=== PATIENT | male | born 1985 | race Caucasian/White ===

== ENCOUNTER 2017-06-20 18:47 | Emergency (ER) | payer OTHER ==
[~2017-06-20] VITALS: Ht 167.6 cm; Wt 67.3 kg
[~2017-06-20 18:47] MED LIST: LORTAB 7.5/5001 TAB PO; MOTRIN 800800 MG/TAB PO; NORCO 325 MG-7.1 TAB PO; No Medications; ORPHENADRINE C100 MG PO
[2017-06-20 18:50] VITALS: BP 137/87; PULSE 84; TEMP 98.1
[2017-06-20 19:42] LABS: COLLECTION METHOD CLEAN CATCH
[2017-06-20 19:50] LABS: MUCOUS Present /lpf; PH 5 (5-8); SQUAMOUS EPITHELIAL None Seen /hpf; URINE APPEARANCE Clear; URINE BACTERIA None Seen /hpf; URINE BILIRUBIN Negative (NEGATIVE); URINE BLOOD Negative (NEGATIVE); URINE COLOR Yellow; URINE GLUCOSE Negative (NEGATIVE); URINE KETONE Negative (NEGATIVE); URINE LEUKOCYTE ESTERASE Negative (NEGATIVE); URINE PROTEIN(semi-quant) Negative (NEGATIVE); URINE RBC 0-2 /hpf; URINE UROBILINOGEN Negative (NEGATIVE); URINE WBC 0-2 /hpf
[2017-06-20] MEDS ORDERED: NAPROSYN500 MG PO (19:54)
[2017-06-20] MEDS ORDERED: FLEXERIL 1010 MG/TAB PO (19:54)
== END 2017-06-20 20:09 | disposition home or self-care (01) ==
LOC: COL.ER 18:47
PROVIDERS: Physician Assistant
DX: M54.31 Sciatica, right side (principal)
CPT/HCPCS: J1885

== ENCOUNTER → 2018-01-08 | Outpatient (CLI) | payer OTHER ==
[~2018-01-08] MED LIST changes: +FLEXERIL 1010 MG/TAB PO; +NAPROSYN500 MG PO
[2018-01-08 17:25] LABS: SYNOVIAL FLUID RBC 3000 /mm3 (0-0); SYNOVIAL FLUID WBC 15342 /mm3 (200-600)
[2018-01-08 17:27] LABS: SYNOVIAL FLUID APPEARANCE CLOUDY; SYNOVIAL FLUID COLOR YELLOW
== END ==
LOC: ZCOL.LAB 17:10
PROVIDERS: Orthopaedic Surgery
DX: M25.562 Pain in left knee (principal)

== ENCOUNTER 2018-07-27 11:33 | Emergency (ER) | payer BC ==
[~2018-07-27] VITALS: Ht 172.7 cm; Wt 65.9 kg
[2018-07-27 11:37] VITALS: TEMP 98.1
[2018-07-27] MEDS ORDERED: ZYLOPRIM 300MG300 MG PO (11:40)
[2018-07-27] MEDS ORDERED: NORCO 325 MG-51 TAB PO (11:58)
[2018-07-27 12:34] VITALS: BP 123/84; PULSE 88
== END 2018-07-27 12:35 | disposition home or self-care (01) ==
LOC: COL.ER 11:33
DX: S02.2XXA Fracture of nasal bones, initial encounter for closed fracture (principal); S86.912A Strain of unspecified muscle(s) and tendon(s) at lower leg level, left leg, initial encounter; W18.39XA Other fall on same level, initial encounter; W22.8XXA Striking against or struck by other objects, initial encounter; Y92.009 Unspecified place in unspecified non-institutional (private) residence as the place of occurrence of the external cause
CPT/HCPCS: J1885; L1846

== ENCOUNTER 2022-11-11 11:49 | Emergency (ER) | payer OTHER ==
[~2022-11-11] VITALS: Ht 167.6 cm; Wt 68.2 kg
[~2022-11-11 11:49] MED LIST changes: +NORCO 325 MG-51 TAB PO; +ZYLOPRIM 300MG300 MG PO
[2022-11-11] MEDS ORDERED: CATAPRES 0.1MG0.1 MG PO (12:00)
[2022-11-11] MEDS ORDERED: LAMICTAL 100MG100 MG (12:01)
[2022-11-11] MEDS ORDERED: PROZAC 20MG20 MG PO (12:01)
[2022-11-11] MEDS ORDERED: ZYPREXA10 MG PO (12:02)
[2022-11-11 13:09] LABS: BASO % 0.4 % (0.0-2.0); EOS % 0.2 % (0.0-4.0); GRAN # 9.3 K/mm3 (1.4-6.5); GRAN % 89.6 % (42.2-75.2); HEMATOCRIT 32.6 % (42.0-52.0); HEMOGLOBIN 11.1 g/dl (13.5-18.0); LYMPH # 0.4 K/mm3 (1.2-3.4); LYMPH % 4.1 % (20.0-51.0); MEAN CELL VOLUME 85 fl (80.0-100.0); MEAN CORPUSCULAR HEMOGLOBIN 29 pg (27-31); MEAN CORPUSCULAR HGB CONC 34 g/dl (33.0-37.0); MEAN PLATELET VOLUME 8.5 fl (7.4-10.4); MONO # 0.6 K/mm3 (0.1-0.6); MONO % 5.4 % (1.7-9.3); PLATELET COUNT 358 K/mm3 (130-400); RED BLOOD COUNT 3.83 M/mm3 (4.20-5.60)
[2022-11-11 13:27] LABS: ALBUMIN 2.8 gm/dL (3.5-5.0); BILIRUBIN,TOTAL 0.6 mg/dL (0.2-1.2); CALCIUM 8.9 mg/dL (8.4-10.2); CREATININE, serum 0.89 mg/dL (0.72-1.25); POTASSIUM 3.6 mmol/L (3.5-4.5); TOTAL PROTEIN 6.8 gm/dL (6.2-8.1)
[2022-11-11] MEDS ORDERED: ZITHROMAX Z PA250 MG PO (13:48)
[2022-11-11] MEDS ORDERED: AMOXICILLIN 50500 MG PO (13:48)
[2022-11-11 14:10] VITALS: BP 102/64; PULSE 74; TEMP 98.1
== END 2022-11-11 14:10 | disposition home or self-care (01) ==
LOC: COL.ER 11:49
PROVIDERS: Physician Assistant
DX: J18.9 Pneumonia, unspecified organism (principal); Z20.822 Contact with and (suspected) exposure to COVID-19
CPT/HCPCS: J7030